=== PATIENT | female | born 1980 | race Two or more races ===

== ENCOUNTER → 2024-09-03 | Outpatient (CLI) | payer MEDICAID, SELFPAY ==
--- NOTE | 2024-09-03 13:15 | XR_ITS ---
Examination: Screening digital mammography, bilateral Computer aided detection 3-D breast Tomosynthesis, bilateral Date and time of exam: September 03, 2024 1318 hours Compared to mammograms dating to September 02, 2010 Indication: Screening Technique: Nonmagnified MLO, CC views of the breasts to been obtained, reconstructed from 3-D Tomosynthesis images. R2 computer aided detection program utilized for evaluation of suspicious masses and/or abnormal calcifications. 3-D Tomosynthesis images obtained. Findings: The breasts are heterogeneously dense, which may obscure small masses Benign calcifications. No intervals suspicious masses Impression: BI-RADS category II: Benign Findings. Recommend 1 year follow-up mammogram.
== END | disposition home or self-care (01) ==
PROVIDERS: PCP Physician Assistant; Referring Provider Specialist; Visit Provider Specialist
DX: Z12.31 Encounter for screening mammogram for malignant neoplasm of breast (principal); R92.323 Mammographic fibroglandular density, bilateral breasts; R92.1 Mammographic calcification found on diagnostic imaging of breast
CPT/HCPCS: 77063; 77067

== ENCOUNTER 2024-10-02 06:20 | Day surgery (SDC) | payer MEDICAID, SELFPAY ==
[2024-09-28 08:08] VITALS: BMI 28.7
[2024-09-28 09:38] LABS: Basophils % (Auto) 1 % (0-2.5); Eosinophils # (Auto) 0.3 Thou/mm3 (0.0-0.5); Eosinophils % (Auto) 4 % (0-10); Hematocrit 38.2 % (36.0-46.0); Hemoglobin 12.5 g/dL (12.0-16.0); Immature Granulocytes % (Auto) 0 % (0-0); Immature Granulocytes Auto 0.02 Thou/mm3 (0.00-0.00); Lymphocytes # (Auto) 1.5 Thou/mm3 (1.0-4.8); Lymphocytes % (Auto) 21 % (10-50); Mean Corpuscular HGB Conc 32.7 g/dl (31.0-37.0); Mean Corpuscular Volume 92 fL (80-100); Monocytes # (Auto) 0.4 Thou/mm3 (0.0-0.8); Monocytes % (Auto) 5 % (0-12); Neutrophils # (Auto) 5.1 Thou/mm3 (1.8-7.7); Neutrophils % (Auto) 70 % (37-80); Nucleated Red Blood Cell % 0 /100 WBC (0); Platelet Count 353 Thou/mm3 (140-440); RDW Standard Deviation 42.2 fL (36.4-46.3); Red Blood Count 4.17 Miln/mm3 (4.00-5.20); White Blood Count 7.4 Thou/mm3 (3.6-11.0)
[2024-09-28 09:49] LABS: Anion Gap 6 (7-16); BUN/Creatinine Ratio 13 Ratio (12-20); Blood Urea Nitrogen 9 mg/dL (9-23); Calcium 9.5 mg/dL (8.3-10.6); Carbon Dioxide 28.7 mMol/L (20.0-31.0); Chloride 105 mMol/L (98-107); Creatinine (Component) 0.7 mg/dL (0.6-1.3); Estimated Creatinine Clearance 97.5 mL/min (>60); Glucose 84 mg/dL (74-106); Osmolality,Calculated 277 (275-295); Potassium 4.8 mMol/L (3.4-5.1); Sodium 140 mMol/L (136-145); eGFR > 60 See Note
[2024-10-02 06:54] VITALS: BP 134/84; PULSE 84; RESP 17; TEMP 36.6; O2SAT 100; BMI 28.7
[2024-10-02] MEDS: RINGERS LACTATED 1000 ML 1,000 ML 20 ML IV (07:01)
--- NOTE | 2024-10-02 09:01 | PD.SUROPNT ---
Date of Procedure 10/02/24 Pre Op Diagnosis Right mid back soft tissue mass Post Op Diagnosis Right mid back subfascial soft tissue mass Procedure Excision of subfascial soft tissue mass from right mid back Findings An approximately 4 cm lipomatous subfascial mass in right mid back Procedure Description Patient brought into the operating room and spine position. After administration of monitored anesthesia care, patient was placed in left lateral decubitus position. Her right mid back was prepped and draped in standard surgical manner. After administration of local anesthesia an approximately 4 cm elliptical incision was made and dissection was deepened into soft tissue. The mass was palpated and noted to be subfascial. The fascia was divided. The underlying mass was circumferentially dissected off surrounding tissue and underlying muscle. The mass was measuring to be approximately 4 cm in diameter, lipomatous in nature. The wound was washed and irrigated and hemostasis achieved using electrocautery. The fascia reapproximated with interrupted sutures using 2-0 Vicryl. Subcutaneous tissue closed with interrupted sutures using 2-0 Vicryl and the incision was closed with 4-0 Monocryl in subcuticular fashion. Dermabond applied. Patient tolerated procedure well. She was placed in supine position. She was breathing spontaneously and without difficulty and was transferred to postanesthesia care in stable condition. Instruments, needles and sponge counts were reported to be correct x 2. Anesthesia MAC and local Pathology / specimen Other (Right mid back mass) Estimated Blood Loss 2 Condition Stable Disposition PACU Surgeon Pam Hays MD Surgical Staff Operation Date: 10/02/24 08:30 Case Staff SUPERVISOR SPECIAL EDUCATION: Sandro Martinez RNclass a truck driver: Peyton Raza
[2024-10-02 09:03] VITALS: BP 134/76; PULSE 88; RESP 20; TEMP 36.8; O2SAT 99
--- NOTE | 2024-10-02 09:03 | SUR.PHASEII ---
0903 Patient arrived to recovery resting comfortably in [facility], awake and talking with staff, breathing unlabored, vital signs stable, denies pain, dressing intact to right back; dermabond, no bleeding noted, lung sounds clear upon auscultation, bilateral radial pulses present when palpated, report received from Sandro BULL and Belen
[2024-10-02 09:08] VITALS: BP 119/66; PULSE 83; RESP 19; O2SAT 97
[2024-10-02 09:13] VITALS: BP 118/77; PULSE 87; RESP 19; O2SAT 98
[2024-10-02 09:18] VITALS: BP 124/69; PULSE 81; RESP 14; O2SAT 98
[2024-10-02 09:33] VITALS: BP 120/71; PULSE 79; RESP 17; TEMP 36.7; O2SAT 98
--- NOTE | 2024-10-02 09:41 | SUR.PHASEII ---
0941 Patient meets discharge criteria from recovery, awake and alert, breathing unlabored, vital signs stable, denies pain, dressing intact; no bleeding noted, drinking water; denies nausea, patient able to dress herself into her clothing, discharge instructions given to patient and patients with the assistance of the telephone certified prosthetist/orthotist Maggie ID#[id number], patients signed discharge instructions. Patient given all her belongings prior to discharge, transported via wheelchair and left in a private vehicle
== END 2024-10-02 09:41 | disposition home or self-care (01) ==
PROVIDERS: PCP Physician Assistant; Referring Provider Surgery; Visit Provider Surgery
PROC: (CPT 21932; principal; 2024-10-02 08:30)
DX: D17.1 Benign lipomatous neoplasm of skin and subcutaneous tissue of trunk (principal)
CPT/HCPCS: 21932; 36415; 80048; 84703; 85025; A4217; A4649; J0131; J2250; J2405; J2704; J3010; J3490; J7120

== ENCOUNTER 2024-11-23 10:30 | Outpatient (RCR) | payer MEDICAID, SELFPAY ==
--- NOTE | 2024-11-07 09:24 | PT.OIERPT ---
PT OP Initial Eval Patient Information Outpatient Physical Therapy Treatment Date: 11/07/24 Visit Reasons: RIGHT ELBOW PAIN Medical Diagnosis: Right Elbow Pain; Tennis Elbow Treatment Dx #1: Right Elbow Pain Start of Care: 11/07/24 Date of Onset: 8 months ago Smoking Status Smoking Status: Never smoker Initial Assessment Subjective: Pt is a 44 y/o female reports of chronic right elbow pain (6/10) intermittently ~ 8 months ago. Pt has limitation with work, gripping, lifting, chores, self care, and performing recreational activities Objective: Right Elbow AROM: all motions are WNL Right Elbow MMTs: grossly 4/5 Right Wrist AROM: all motions are WFL Right Wrist MMTs: grossly 4/5 Special Test (+) Brannon (+) cozen Palpation: TTP extensor complex Regulatory Law Specialist Strength L: 80 lbs R: 90 lbs Assessment: Pt demonstrate right elbow pain consistent with tennis elbow leading to difficulty with ADLs. 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
--- NOTE | 2024-11-13 09:59 | PT.ODAYNRPT ---
PT Outpatient Daily Note OP Daily Note Outpatient Physical Therapy Treatment Date: 11/13/24 Visit Reasons: RIGHT ELBOW PAIN Subjective: Pt's elbow is okay and still notice some pain with activities Objective: Please see flow chart for list of ther ex performed Assessment: tolerate exercises with minimal pain Plan: Continue with PT Length of Time (minutes) of Treatment: 30 Minutes Procedure Charges Therapeutic Exercise 30 minutes: Yes
--- NOTE | 2024-11-15 09:35 | PT.ODAYNRPT ---
PT Outpatient Daily Note OP Daily Note Outpatient Physical Therapy Treatment Date: 11/15/24 Visit Reasons: RIGHT ELBOW PAIN Subjective: No new complaints or concerns. Objective: Please see flow sheet for ther ex list. Assessment: Pt tolerated interventions with minimal hand fatigue, no other complaints. Plan: Continue with POC. Length of Time (minutes) of Treatment: 30 Minutes Procedure Charges Therapeutic Exercise 30 minutes: Yes
--- NOTE | 2024-11-19 11:09 | PT.ODAYNRPT ---
PT Outpatient Daily Note OP Daily Note Outpatient Physical Therapy Treatment Date: 11/19/24 Visit Reasons: RIGHT ELBOW PAIN Subjective: Pt reports R elbow is doing ok, progress slow. Objective: Please see flow sheet for ther ex list. Assessment: Instructed pt on median nerve glide, pt tolerated with minimal irritation. Plan: Continue with POC. Length of Time (minutes) of Treatment: 30 Minutes Procedure Charges Therapeutic Exercise 30 minutes: Yes
--- NOTE | 2024-11-23 11:15 | PT.ODAYNRPT ---
PT Outpatient Daily Note OP Daily Note Outpatient Physical Therapy Treatment Date: 11/23/24 Visit Reasons: RIGHT ELBOW PAIN Subjective: Pt reports progress with R elbow pain is slow. Objective: Please see flow sheet for ther ex list. Assessment: Progression of interventions completed with muscle fatigue but no pain to report. Plan: Continue with POC. Length of Time (minutes) of Treatment: 30 Minutes Procedure Charges Therapeutic Exercise 30 minutes: Yes
== END 2024-11-26 23:59 | disposition home or self-care (01) ==
LOC: CPTX 10:30
PROVIDERS: PCP Physician Assistant; Referring Provider Physician Assistant; Visit Provider Physician Assistant
DX: M25.521 Pain in right elbow (principal); G89.29 Other chronic pain
CPT/HCPCS: 97110; 97162

== ENCOUNTER 2024-11-30 11:00 | Outpatient (RCR) | payer MEDICAID, SELFPAY ==
--- NOTE | 2024-11-28 12:30 | PT.ODAYNRPT ---
PT Outpatient Daily Note OP Daily Note Outpatient Physical Therapy Treatment Date: 11/28/24 Subjective: Pt's elbow is better. Pt's able to perform task with less limitation. Pt will like to continue physical therapy. Objective: Please see flow chart for list of ther ex performed Assessment: progress patient to green resistance digiflex exercise; patient unable to complete individual fingers due to resistance. Pt was able to perform exercise using all her fingers with slight difficulty with 5th digit Plan: Continue with PT Length of Time (minutes) of Treatment: 30 Minutes Procedure Charges Therapeutic Exercise 30 minutes: Yes
--- NOTE | 2024-11-30 11:04 | PTNOTE_ITS ---
PT OP Progress/Discharge Note Date of Service: 11/30/24 Progress Note/DC Note Progress Note/Discharge Note: DC Note Patient Information Medical Diagnosis: Right Elbow Pain; Tennis Elbow Treatment Dx #1: Right Elbow Pain Service Continue Service or Discharge: Discharge Discharge Date: 11/30/24 Status Subjective: Pt's elbow feels much better. Pt follows up with provider soon. Pt mentioned she wants to consult with provider for see if she shoulder continue physical therapy. Pt has been able to resume ADLs, gripping, lifting, and recreational activities. 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 At this time Pt has met all set goals in therapy and will no longer benefit from physical therapy. Pt was instructed on HEP last session and educated to continue to maintain overall mobility. Pt performed all exercises safely, thank you for your referrals. Plan: D/C home with HEP and follow up with provider PRN Procedure Charges Therapeutic Exercise 30 minutes: Yes
== END 2024-12-26 23:59 | disposition home or self-care (01) ==
LOC: CPTX 11:00
PROVIDERS: PCP Physician Assistant; Referring Provider Physician Assistant; Visit Provider Physician Assistant
DX: M25.521 Pain in right elbow (principal); G89.29 Other chronic pain
CPT/HCPCS: 97110

== ENCOUNTER 2024-12-11 07:05 | Day surgery (SDC) | payer MEDICAID, SELFPAY ==
--- NOTE | 2024-12-07 17:59 | ESHP_ITS ---
RE: MADHURI MORGAN : 1980 DATE OF ADMISSION: 12/11/2024 HISTORY OF PRESENT ILLNESS: This is a 44-year-old 3, para 3 with abnormal uterine bleeding and endometrial polyps. PAST MEDICAL HISTORY: Hypothyroidism and migraine headaches. PAST SURGICAL HISTORY: delivery in 2008 and 2013. Bilateral tubal ligation. ALLERGIES: NO KNOWN DRUG ALLERGIES. MEDICATIONS: Levothyroxine 100 mcg 1 p.o. daily. SOCIAL HISTORY: She is . She denies any alcohol, drug use, or smoking. FAMILY HISTORY: Paternal uncle has colon cancer and diabetes. Maternal aunt has diabetes. Father has hypertension. Paternal grandmother and maternal grandmother have heart disease. REVIEW OF SYSTEMS: She denies any chest pain, palpitations, cough, fever, shortness of breath, or lower extremity pain. She denies any headache, change in vision, or right upper quadrant pain. PHYSICAL EXAMINATION: VITAL SIGNS: Blood pressure is 140/72 mmHg, heart rate 88, respirations 18, temperature 98.2. HEENT: Oropharynx and sclerae are clear. LUNGS: Clear to auscultation bilaterally. HEART: Regular rate and rhythm. ABDOMEN: Old Pfannenstiel scar noted. Nontender. EXTREMITIES: Nontender. SKIN: No gross rashes or lesions. NEUROLOGIC: No focal deficit. ASSESSMENT: Abnormal bleeding, endometrial polyp. PLAN: Hysteroscopy, Myosure removal of endometrial polyps, fractional dilatation and curettage, and NovaSure endometrial ablation. Informed consent was obtained. The patient was made aware of the risks, complications, alternatives, and benefits of the proposed procedure and she agrees. She is aware of the risk of injury to bowel or bladder, adjacent organs, pulmonary embolism, deep vein thrombosis, pelvic infection, reoperation to repair, injury to internal organs, anesthesia complications, the possibility that a laparotomy needs to be performed to repair organs or control bleeding, and the possibility that the procedure is not able to be completed due to severe adhesions or technical difficulties. She verbalized understanding and agrees to proceed with the procedure with an understanding of the risks and complications. DT: 17:09:27 TT: 17:57:00 Ref: [id number] - TID: [id number] [facility]ITAL[facility]p
[2024-12-10 08:25] VITALS: BMI 28.3
[2024-12-10 09:18] LABS: Basophils % (Auto) 0 % (0-2.5); Eosinophils # (Auto) 0.2 Thou/mm3 (0.0-0.5); Eosinophils % (Auto) 2 % (0-10); Hematocrit 37.4 % (36.0-46.0); Hemoglobin 12.4 g/dL (12.0-16.0); Immature Granulocytes % (Auto) 0 % (0-0); Immature Granulocytes Auto 0.01 Thou/mm3 (0.00-0.00); Lymphocytes # (Auto) 1.5 Thou/mm3 (1.0-4.8); Lymphocytes % (Auto) 19 % (10-50); Mean Corpuscular HGB Conc 33.2 g/dl (31.0-37.0); Mean Corpuscular Volume 90 fL (80-100); Monocytes # (Auto) 0.4 Thou/mm3 (0.0-0.8); Monocytes % (Auto) 5 % (0-12); Neutrophils % (Auto) 74 % (37-80); Nucleated Red Blood Cell % 0 /100 WBC (0); Platelet Count 342 Thou/mm3 (140-440); RDW Standard Deviation 40.4 fL (36.4-46.3); Red Blood Count 4.14 Miln/mm3 (4.00-5.20); White Blood Count 8.2 Thou/mm3 (3.6-11.0)
[2024-12-10 09:41] LABS: INR 0.9 (0.9-1.3); Partial Thromboplastin Time 24.2 Seconds (22.0-36.0); Prothrombin Time 10.3 Seconds (9.0-12.2)
[2024-12-10 09:44] LABS: Alanine Aminotransferase 11 U/L (10-49); Albumin, Serum 4.3 gm/dL (3.5-5.0); Albumin/Globulin Ratio 1.5 (1.2-2.2); Alkaline Phosphatase 76 U/L (46-116); Anion Gap 6 (7-16); Aspartate Amino Transferase 17 U/L (0-34); BUN/Creatinine Ratio 13 Ratio (12-20); Beta HCG,Quantitative < 1 mIU/mL (<5.0); Bilirubin,Total 0.5 mg/dL (0.3-1.2); Blood Urea Nitrogen 9 mg/dL (9-23); Calcium 9.3 mg/dL (8.3-10.6); Calcium (Corrected) 9.3 mg/dL (8.5-10.1); Carbon Dioxide 25.9 mMol/L (20.0-31.0); Chloride 107 mMol/L (98-107); Creatinine (Component) 0.7 mg/dL (0.6-1.3); Estimated Creatinine Clearance 96.9 mL/min (>60); Globulin 2.9 gm/dL (2.3-3.5); Glucose 92 mg/dL (74-106); Osmolality,Calculated 276 (275-295); Potassium 4.4 mMol/L (3.4-5.1); Sodium 139 mMol/L (136-145); Total Protein 7.2 gm/dL (5.7-8.2); eGFR > 60 See Note
[2024-12-11] VITALS (9 sets, daily range): BP systolic 101–130; BP diastolic 61–76; PULSE 60–87; RESP 14–20; TEMP 36.4–36.7; O2SAT 97–100; BMI 27.2
[2024-12-11] MEDS: RINGERS LACTATED 1000 ML 1,000 ML 30 ML IV (08:05)
--- NOTE | 2024-12-11 09:49 | PD.GYNPROC ---
Operative Note - INFORMATION SPECIALIST Procedure Date of procedure: 12/11/24 Procedure Performed: Hysteroscopy MyoSure removal of endometrial polyp Fractional dilatation curettage NovaSure endometrial ablation Indication: Abnormal uterine bleeding Endometrial polyp Pre-Op diagnosis: Abnormal uterine bleeding Endometrial polyp Post-Op diagnosis: Abnormal uterine bleeding Endometrial polyp Anesthesia type: General Specimen: other (Endometrial polyp, endocervical curettings, endometrial curettings.) Estimated blood loss (ml): 5 Findings: Uterus sounded to 9.5 cm, cervical length 3.0 cm, uterine cavity length 6.5 cm, uterine cavity width 2.6 cm, power setting 93 W, duration of ablation 1 minute and 3 seconds, fluids observed hysteroscopically 50 cc. Endometrial polyp in the posterior fundal aspect of the uterine cavity measuring 6 x 7 mm. No submucous myomas, no endocervical myomas or polyps, no irregularities of the uterine cavity, both tubal ostia visualized. Complications: none Narrative: After proper informed consent was obtained and the patient made aware the risk complication alternative benefits of the proposed procedure she was taken the operating room where she underwent induction of general anesthesia she is placed in dorsal lithotomy position she was prepped and draped usual sterile fashion. A timeout was performed. A bivalve speculum was placed in the vagina. A single-tooth tenaculum was used to grasp the anterior by the cervix. The cervix was dilated to accommodate the 5.5 mm Omni hysteroscope. The hysteroscope using the oncolytic system was then utilized to visualize the endocervix and uterine cavity and the above findings noted. Using the MyoSure reach the polypectomy was performed. And the polyp was sent to pathology. Using the endocervical Kevorkian curette the endocervix was curetted and specimen sent to pathology. Using the 5 mm curette the uterine cavity was curetted and specimen sent to pathology. The uterus was sounded to 9.5 cm. Cervical length measured 3.0 cm. The NovaSure catheter was appropriately seated in the uterine cavity with 6.5 cm on the cavity length. And the width meter read 2.6 cm. The carbon oxide cavity integrity assessment test was performed. The cavity was intact. The NovaSure endometrial ablation was performed for a total of 1 minute and 3 seconds at 93 W before the controller shut off. The array was retracted into the sheath and the catheter removed from the uterine cavity. The array was redeployed and found to be complete and intact. There was no bleeding at the cervix or vagina at the end of the procedure.. She was reversed from general anesthesia in the supine position and transferred to the recovery room in stable condition.. I discussed with the patient's the nature of her condition and the intraoperative findings expectation for recovery all questions answered. Surgical staff Tomas Rawls CRNA Operation Date: 12/11/24 09:15 <No data on this case meets the specified criteria> Diagnosis Discharge Diagnosis (1) Abnormal uterine bleeding: Status: Acute (2) Endometrial polyp: Status: Acute (3) Status post endometrial ablation: Status: Acute Problem List Completed Was Problem List Reviewed/Reconciled?: Yes
[2024-12-11] MEDS: fentaNYL CIT INJ 50 mCg/ML AMP 2ML IV (10:23)
--- NOTE | 2024-12-11 10:31 | SUR.PHASEI ---
0939: Pt received for recovery. Report from Tita BOGGS and LABORATORY ASST. Oral airway in place. Resp even, unlabored. VS stable. No vaginal bleeding. 0952: Oral airway dc'd. Resp even, unlabored. 1005: Pt resting with no complaints voiced. Resp even, unlabored. VS stable. No vaginal bleeding.
--- NOTE | 2024-12-11 14:25 | SUR.PHASEII ---
1023: Pt awake with c/o pain to lower abdomen. Rates pain level 6/10. VS stable. Resp even, unlabored. Pain medication given per order. 1045: Pt stated pain level, cramping, is gone and she is experiencing mild discomfort. No vaginal bleeding. VS stable. Resp even, unlabored. Is sitting up tolerating po fluids with no difficulty swallowing and no n/v. 1100: Pt fully awake, oriented x3. VS stable. Continues to state pain level very tolerable. Pt dressed and assisted to restroom. Ambulation steady. Pt and stated understanding of discharge instructions via enrobing machine feeder Rafael #[id number]. Pt discharged from [facility] in stable condition.
== END 2024-12-11 11:00 | disposition home or self-care (01) ==
PROVIDERS: PCP Physician Assistant; Referring Provider Specialist; Visit Provider Specialist
PROC: 0UJD8ZZ Inspection of Uterus and Cervix, Via Natural or Artificial Opening Endoscopic (ICD-10-PCS; CPT 58555; principal; 2024-12-11 09:00)
DX: N84.0 Polyp of corpus uteri (principal); E03.9 Hypothyroidism, unspecified; Z79.890 Hormone replacement therapy; Z80.0 Family history of malignant neoplasm of digestive organs; Z82.49 Family history of ischemic heart disease and other diseases of the circulatory system; Z83.3 Family history of diabetes mellitus
CPT/HCPCS: 58563; 36415; 80053; 84702; 85025; 85610; 85730; 86850; 86900; 86901; A4217; A4649; J0131; J0690; J1100; J1885; J2250; J2405; J2704; J3010; J3490; J7120